=== PATIENT | female | born 1975 | race Caucasian/White ===

== ENCOUNTER 2021-01-17 11:31 | Emergency (ER) | payer MEDICAID ==
[~2021-01-17] VITALS: Ht 157.5 cm; Wt 65.0 kg
[2021-01-17 11:32] VITALS: BP 160/100
[2021-01-17] MEDS ORDERED: PERM60CR4 TP (12:13)
[2021-01-17] MEDS ORDERED: CEPH500C2 MT (12:13)
== END 2021-01-17 12:34 | disposition home or self-care (01) ==
LOC: ER 11:31
DX: R21 Rash and other nonspecific skin eruption (principal); Z90.49 Acquired absence of other specified parts of digestive tract
CPT/HCPCS: 99281